=== PATIENT | male | born 1960 | race Caucasian/White ===

== ENCOUNTER → 2018-06-16 | Outpatient (CLI) | payer OTHER ==
[~2018-06-16] MED LIST: ASPI81CH PO; ATOR40TA PO; ATORVASTATIN CA80 MG PO; BUME1 PO; Byetta5 MCG/0.02; CARV25 PO; CLOP75 PO; Carvedilol12.5 MG PO; Complete Senio1 EACH PO; EQL SENNA-S TA1 EACH PO; GLIP2.5ER PO; GLIP5ER PO; LISI5 PO; MAGOXI400 PO; METF500C PO; Metformin HCl500 MG PO; Prinivil10 MG PO; SILD50TA PO
== END ==
LOC: LAB SRC 11:45 → LAB 11:45 → LAB SHORT 11:45
DX: R35.0 Frequency of micturition (principal)
CPT/HCPCS: 87077; 87086; 87186

== ENCOUNTER 2018-08-04 08:19 | Day surgery (SDC) | payer OTHER ==
[~2018-08-04] VITALS: Ht 172.7 cm; Wt 94.5 kg
== END 2018-08-04 10:25 | disposition home or self-care (01) ==
LOC: ORSCSDS 08:19
PROVIDERS: Internal Medicine Gastroenterology
PROC: 0DJD8ZZ Inspection of Lower Intestinal Tract, Via Natural or Artificial Opening Endoscopic (ICD-10-PCS; principal; 2018-08-04 09:30)
DX: Z12.11 Encounter for screening for malignant neoplasm of colon (principal); K44.9 Diaphragmatic hernia without obstruction or gangrene; K57.30 Diverticulosis of large intestine without perforation or abscess without bleeding; Z87.891 Personal history of nicotine dependence; E78.5 Hyperlipidemia, unspecified; I10 Essential (primary) hypertension; I25.10 Atherosclerotic heart disease of native coronary artery without angina pectoris; E11.9 Type 2 diabetes mellitus without complications; Z79.84 Long term (current) use of oral hypoglycemic drugs; Z79.82 Long term (current) use of aspirin; Z79.899 Other long term (current) drug therapy
CPT/HCPCS: 82947; J0330; J1980; J2405; J7120